=== PATIENT | male | born 1950 | race Caucasian/White ===

== ENCOUNTER 2019-10-02 14:13 | Emergency (ER) | payer OTHER ==
[~2019-10-02] VITALS: Ht 175.3 cm; Wt 65.3 kg
[2019-10-02] MEDS ORDERED: AMLODIPINE BESYL5 MG (15:47)
[2019-10-02] MEDS ORDERED: PRAVASTATIN SOD20 MG (15:47)
[2019-10-02] MEDS ORDERED: LOSARTAN POTASS50 MG (15:48)
[2019-10-02] MEDS ORDERED: OSTERA TABLET1 EACH (15:49)
[2019-10-02] MEDS ORDERED: BACTRIM DS TAB1 EACH (15:49)
[2019-10-02] MEDS ORDERED: NORCO 5-325 TA1 EACH (15:49)
[2019-10-02] MEDS ORDERED: ULTRAM50 MG (15:50)
--- OUTSIDE RECORDS SUMMARY | 2019-10-02 16:52 | XMS ---
PreManage Notification: EDGARDO MCKINLEY Security Application Penetration Tester Events No recent Security Events currently on file CRITERIA MET - 6 ED Visits in 6 Months - [facility] - 2 Visits in 30 Days CARE PROVIDERS There are no care providers on record at this time. Megan has no Care Guidelines for this patient. Hilda [facility] (12 MO.) [facility] TOTAL 6 NOTE: Visits indicate total known visits. ED/C VISIT TRACKING (12 MO.) [facility] COMPLAINT: - UPPER ABD PAIN 09/21/2019 16:15 [facility] [place] TYPE: Emergency COMPLAINT: - ABD PAIN/RECTUM PAIN DIAGNOSES: - Anal abscess - Allergy status to analgesic agent status - Anal abscess - Allergy status to analgesic agent status 09/12/2019 17:35 [facility] [place] TYPE: Emergency COMPLAINT: - rectal pain DIAGNOSES: - Right lower quadrant pain - Dvrtclos of intest, part unsp, w/o perf or abscess w/o bleed - Acquired absence of other organs - Acquired absence of other organs - Left lower quadrant pain - Other specified diseases of anus and rectum - Allergy status to analgesic agent status - Allergy status to analgesic agent status - Right lower quadrant pain - Calculus of kidney - Other specified diseases of anus and rectum - Left lower quadrant pain - Dvrtclos of intest, part unsp, w/o perf or abscess w/o bleed - Calculus of kidney 09/07/2019 14:50 [facility] [place] TYPE: Emergency COMPLAINT: - ABD PAIN DIAGNOSES: - Allergy status to analgesic agent status - Acquired absence of other organs - Right lower quadrant pain - Dvrtclos of intest, part unsp, w/o perf or abscess w/o bleed 08/04/2019 15:02 [facility] [place] TYPE: Emergency COMPLAINT: - CHILLS, NEEDS TO SEE THE DOCTOR AND LAB DIAGNOSES: - Pain in throat - Cough - Fever, unspecified - Oth symptoms and signs involving the circ and resp systems - Benign essential microscopic hematuria - Dehydration 08/02/2019 17:15 [facility] [place] TYPE: Emergency COMPLAINT: - constriction in throat, cold sx DIAGNOSES: - Cough - Laryngeal spasm INPATIENT VISIT TRACKING (12 MO.) No inpatient visits to display in this time frame [email or web address]
== END 2019-10-02 19:16 | disposition home or self-care (01) ==
LOC: ED 14:13
DX: K59.00 Constipation, unspecified (principal); R63.4 Abnormal weight loss; Z88.6 Allergy status to analgesic agent; Z79.899 Other long term (current) drug therapy
CPT/HCPCS: 71045; 74177; 80053; 81001; 83690; 85025; 99284-25